=== PATIENT | male | born 2000 | race Caucasian/White ===

== ENCOUNTER 2022-06-03 11:18 | Emergency (ER) | payer OTHER, SELFPAY ==
[2022-06-03 11:20] VITALS: BP 141/88; PULSE 77; RESP 18; TEMP 35.6; O2SAT 97; BMI 31.3
--- NOTE | 2022-06-03 11:28 | EDS_ITS ---
HPI History of Present Illness Chief Complaint: Upper Extremity Injury Detail of Chief Complaint: Right shoulder injury Informant: patient Narrative Narrative: Patient presents the emergency department with complaint of an injury to his rig ht shoulder that occurred yesterday. Patient states that he was playing hockey when he was struck by a player from behind and went into the boards with his right shoulder. Patient had pain right away. Patient is right-hand dominant. He denies any other injuries. PFSH PFSH Medical History no medical history Allergy/AdvReac Type Severity Reaction Status Date / Time No Known Allergies Allergy Verified 06/03/22 11:20 Surgical History no surgical history Social History Smoking Status: Never smoker ROS ROS ED Constitutional Constitutional ED: Reports systems reviewed and no addt'l complaints, except as documented; Denies body ache(s), change in weight or chills Eyes Eyes: Denies acute decrease in peripheral vision, change in vision, double vision or loss of vision ENT ENT ED: Reports none; Denies ear pain, lip swelling, loss taste/smell, neck pain, otalgia or sore throat Cardiovascular Cardiovascular: Reports none; Denies abdominal pain, chest pain with activity, leg edema, lightheadedness, palpitations, rapid heart rate or syncope Respiratory/Chest Respiratory/Chest: Reports none; Denies change in mental status, dry cough, dyspnea, hemoptysis, shortness of breath at rest or shortness of breath with exertion Gastrointestinal Gastrointestinal: Reports none; Denies abdominal pain, change in stool character, diarrhea, hematemesis, hematochezia, melena, rectal bleeding or vomiting Genitourinary Genitourinary ED: Reports none; Denies abdominal discomfort, anuria, dysuria, genital pain or polyuria Musculoskeletal Musculoskeletal: Reports none, extremity pain and other Details: Right shoulder injury/pain ; Denies arthralgias, back pain, difficulty walking, muscle weakness or myalgias Integumentary Reports none; Denies abscess or rash Neurologic Neurologic: Reports none; Denies abnormal gait, confusion, focal weakness, f requent falls, headache(s), loss of vision, numbness, paresthesias, radicular pain, vertigo or weakness Psychiatric Psychiatric: Reports systems reviewed and no addt'l complaints, except as documented and none; Denies behavioral changes, confusion, difficulty concentrating, hallucinations, suicidal ideation, tactile hallucinations or visual hallucinations Endocrine Endocrinology: Denies none, cold intolerance, excessive sweating, fatigue or heat intolerance Hematologic/Lymphatic Hematologic/Lymphatic: Reports none; Denies anemia, easy bleeding or easy bruising Allergic/Immunologic Allergic/Immunologic ED: Denies as per HPI, none, lip swelling, mouth swelling, throat swelling, tongue swelling or hives EXAM Physical Exam Const Vital Signs: 06/03/22 11:20 Temperature 96.1 F L Temperature Source Temporal Pulse Rate 77 Respiratory Rate 18 Blood Pressure 141/88 H Blood Pressure Mean 105 Pulse Ox 97 Oxygen Delivery Method Room Air Positive well nourished and well developed General Appearance ED: well developed and NAD HEENT Reports TM's clear and moist mucous membranes normocephalic and atraumatic; Negative for trauma or tenderness Tympanic Membrane ED: Yes TM's clear Eyes PERRL and EOMs intact bilaterally General Eye ED: Negative for pale conjunctiva or scleral icterus Neck no lymphadenopathy, supple and no JVD General: Negative for tenderness Chest Wall inspection of chest normal and palpation of chest normal Chest: Negative for tenderness Resp normal respiratory effort and clear to auscultation bilaterally Effort and Inspection: Negative for respiratory distress or pain with movement Auscultation: Negative for rhonchi, wheezes or diminished lung sounds Cardio regular rate, regular rhythm, S1 normal heart sound, S2 normal heart sound and no murmurs Peripheral Pulses: pulses 2+ throughout GI normal to inspection, nondistended, normoactive bowel sounds, soft to palpation, non-tender, non-distended and no masses Back/Spine no CVA tenderness and no thoracic nor lumbar tenderness Extremity Extremity Narrative: Right shoulder-no external evidence of trauma. There is no ecchymosis or bruising. There is no sulcus sign. Patient does have somewhat limited range of motion at the glenohumeral joint especially with abduction of the shoulder. Patient does have diffuse tenderness over the proximal aspect of the clavicle. No obvious deformity noted over the clavicle or tenting. General Extremety ED: Negative for edema General Extremity: Negative for edema Neuro oriented x3, CN's II-XII intact bilaterally, no sensory deficits noted and gait normal Sensorium / Orientation: awake, alert, oriented to person, oriented to place and oriented to time Motor Exam: strength 5/5 throughout and strength abnormal Psych mental status grossly normal Skin no rashes or lesions noted and no wounds MDM MDM MDM Narrative Medical decision making narrative: I suspect patient has a shoulder contusion or sprain. On my interpretation of x-rays I do not appreciate any fractures or dislocations or AC separation. Will be given a sling. He is advised to use ibuprofen or Tylenol for discomfort. Patient will be given referral to primary care physician for follow-up within the next 7 to 10 days. Radiography Diagnostic Testin view x-rays of right shoulder obtained interpreted by myself as no acute fractures or dislocations. There is no evidence of AC separation. Official report from radiologist pending Discharge Plan Triage Chief Complaint: Upper Extremity Injury ED Provider: Vlad Bolanos Dx/Rx/DC Orders Clinical Impression: Contusion of right shoulder, Shoulder sprain Instructions: ED Shoulder Sprain, ED Shoulder Contusion Primary Care Provider: NOT,DEFINED Referrals: Luke Kruse DO [Med Staff - Active Staff] - 3-5 Days NOT,DEFINED [Primary Care Provider] - Disposition Disposition: Home, Self Care
--- NOTE | 2022-06-03 11:30 | RAD_ITS ---
STUDY: X-RAY - RIGHT SHOULDER REASON FOR EXAM: Male, 22 years old. injury TECHNIQUE: 4 view(s) of the shoulder. COMPARISON: None. FINDINGS: Normal glenohumeral articulation. Normal acromioclavicular joint. Normal acromion. Normal humeral head and visualized proximal humerus. The soft tissue structures are unremarkable. There is no demonstrated fracture. Normal visualized pulmonary apex. RAD/Shoulder min 2 Views IMPRESSION: Normal x-ray examination of the shoulder. Electronically Signed: Juan J Pitts MD at 11:43 EST ,
[2022-06-03 12:07] VITALS: BP 118/78; PULSE 88; RESP 16; TEMP 37.2; O2SAT 99
== END 2022-06-03 12:07 | disposition home or self-care (01) ==
LOC: ED 11:46
PROVIDERS: Emergency Provider Emergency Medicine; Visit Provider Emergency Medicine
DX: S40.011A Contusion of right shoulder, initial encounter (principal); S43.401A Unspecified sprain of right shoulder joint, initial encounter; W21.210A Struck by ice hockey stick, initial encounter
CPT/HCPCS: 73030; 99283